=== PATIENT | female | born 1940 | race Caucasian/White ===

== ENCOUNTER 2024-07-07 14:25 | Outpatient (CLI) | payer MEDICARE, SELFPAY ==
[2024-07-07 22:24] LABS: SARS PCR* POSITIVE SARS-CoV-2 (Negative)
[2024-07-07 22:25] LABS: Strep A DNA Probe* NOT DETECTED (Not Detectd)
== END 2024-07-07 14:26 | disposition home or self-care (01) ==
PROVIDERS: PCP Nurse Practitioner Family; Referring Provider Nurse Practitioner Family; Visit Provider Nurse Practitioner Family
DX: R19.7 Diarrhea, unspecified (principal); J02.9 Acute pharyngitis, unspecified; R00.2 Palpitations; R74.8 Abnormal levels of other serum enzymes; R32 Unspecified urinary incontinence
CPT/HCPCS: 80053; 81001; 85025; 85379; 87086; 87635; 87651

== ENCOUNTER 2024-07-11 08:30 | Outpatient (CLI) | payer MEDICARE, SELFPAY | END 2024-07-11 08:31 | disposition home or self-care (01) | LOC: NFLDREF 07-13 04:50 | PROVIDERS: PCP Nurse Practitioner Family; Referring Provider Nurse Practitioner Family; Visit Provider Nurse Practitioner Family | DX: R74.8 Abnormal levels of other serum enzymes (principal) | CPT/HCPCS: 80076; 82150; 83690 ==

== ENCOUNTER 2024-07-13 13:48 | Emergency (ER) | payer MEDICARE, SELFPAY ==
[2024-07-13 13:55] VITALS: BP 171/92; PULSE 89; RESP 14; TEMP 36.3; O2SAT 96; BMI 29.3
--- NOTE | 2024-07-13 14:29 | ED.GENADULT ---
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 This passed after only a few seconds. She has no other neurologic symptoms. There was some initial concern that her daughter thought maybe her speech has been slurred recently. Further questioning indicates that this not to be the case. Patient recently return from a trip to [place] where she had a shawn time. She did have COVID upon returning home he but is completed her URI symptoms. Interestingly she has siladenitis on the right and actually was going to have stone removal this is until the stone actually passed. She has been placed on Augmentin for the stones although very much like to discontinue this. Overall she feels well now she agrees she is not having any neurologic symptoms. Related Data Previous Rx's ?Medication ?Instructions ?Recorded atenolol 50 mg tablet 50 mg PO QDAY #90 tabs 07/07/24 oxybutynin chloride 5 mg 5 mg PO QDAY #90 tabs 07/07/24 tablet,extended release 24 hr Allergies Allergy/AdvReac Type Severity Reaction Status Date / Time No Known Drug Allergies Allergy Verified 07/07/24 14:22 Review of Systems Status of ROS: Reports: 10 or more systems reviewed and unremarkable except as noted in History and below Exam Narrative: Exam Narrative: EXAM GENERAL: Patient appears comfortable and well. EYES: No scleral icterus. ENT: Tympanic membranes and oropharynx normal. Mild lymphadenopathy noted right anterior chain cervical spine. THYROID: no thyroid nodules or thyromegaly. LYMPH: No supraclavicular or cervical lymphadenopathy. SKIN: Visible skin seen during exam normal or with benign process only. EXT: No dependent lower extremity pedal edema. HEART: Regular rate and rhythm with no murmurs, rubs, or gallops. LUNGS: Clear to auscultation bilaterally with no crackles or wheezes. ABD: Soft, non tender, non distended. PSYCH: Good eye contact, speech is not pressured. Const: Vital Signs, click to edit/add: Vital Signs - 24 hr 07/13/24 13:55 Temperature 97.3 F L Pulse Rate [Pulse Oximeter] 89 Respiratory Rate 14 Blood Pressure [Ri ght Upper Arm] 171/92 H Pulse Oximetry 96 Oxygen Delivery Me thod Room Air Course Course ED Course: Patient seen and examined. Vital Signs Vital signs: Initial Vital Signs Temperature 97.3 F L 07/13/24 13:55 Temperature Source Temporal Artery Scan 07/13/24 13:55 Pulse Rate 89 07/13/24 13:55 Pulse Rhythm Regular 07/13/24 13:55 Respiratory Rate 14 07/13/24 13:55 Blood Pressure 171/92 H 07/13/24 13:55 Blood Pressure Mean 118 H 07/13/24 13:55 Blood Pressure Position Sitting 07/13/24 13:55 Pulse Oximetry 96 07/13/24 13:55 Oxygen Delivery Method Room Air 07/13/24 13:55 Vital Signs Temperature 97.3 F L 07/13/24 13:55 Pulse Rate 89 07/13/24 13:55 Respiratory Rate 14 07/13/24 13:55 Blood Pressure 171/92 H 07/13/24 13:55 Pulse Oximetry 96 07/13/24 13:55 Oxygen Delivery Method Room Air 07/13/24 13:55 Temperature 97.3 F L 07/13/24 13:55 Pulse Rate 89 07/13/24 13:55 Respiratory Rate 14 07/13/24 13:55 Blood Pressure 171/92 H 07/13/24 13:55 Pulse Oximetry 96 07/13/24 13:55 Oxygen Delivery Method Room Air 07/13/24 13:55 Medical Decision Making MDM Narrative Medical decision making narrative: Patient is a 3-year-old woman who had a very brief episode of blurred vision earlier today which she he attributes to the Augmentin that she is taking. She is an avid golfer and has had no limitations in her activity. She recently returned from [place] unfortunately had COVID-19 upon returning home but is made full recovery. She also passed a salivary gland stone recently. Patient is in today to see if she can stop the Augmentin as she does not feel like she is tolerating it. I did have a nice long discussion with her about possible neurologic symptoms in will agree that she does not seem to be having any neurologic symptoms. I do think is reasonable to discontinue Augmentin since the stone is passed in treat her adenitis with Tylenol Motrin and cold/warm compresses. She agrees and will follow-up with her primary physician as needed. Differential diagnosis includes but not limited to TIA CVA is side effect of medication dry eyes post affects of COVID-19. Discharge Plan Discharge Clinical Impression: Blurred vision Patient Disposition: Home, Self-Care Condition: Stable Instructions: Blurred Vision (ED) Additional Instructions: . Augmentin Continue Tylenol Motrin cold and hot packs as needed. Activity Level: No Restrictions Discharge Diet: Regular Prescriptions: No Action atenolol 50 mg tablet 50 mg PO QDAY Qty: 90 3RF oxybutynin chloride 5 mg tablet extended release 24hr 5 mg PO QDAY Qty: 90 3RF Follow Up/Referrals: Rossy Schmid, MOD[employer] MEMBER, REHEAT FURNACE OPERATOR [Primary Care Provider] - Stand Alone Forms: Whistle Info Instructions
[2024-07-13 14:40] VITALS: BP 169/88; PULSE 82; RESP 14; TEMP 36.3
== END 2024-07-13 14:40 | disposition home or self-care (01) ==
PROVIDERS: Emergency Provider Internal Medicine; PCP Nurse Practitioner Family
DX: H53.8 Other visual disturbances (principal)
CPT/HCPCS: 99282; 99283